=== PATIENT | female | born 1945 | race Two or more races ===

== ENCOUNTER 2022-11-13 07:11 | Day surgery (SDC) | payer OTHER, MEDICAID ==
[2022-11-13] VITALS (8 sets, daily range): BP systolic 134–155; BP diastolic 52–75
[~2022-11-13] VITALS: Ht 160 cm; Wt 82.6 kg
[~2022-11-13 07:11] MED LIST: ALBU108A5; APIX5TAB PO; ASPI-543 PO; FLUT0.05 NAS; GLIP5TAB12 PO; HYDR-4798 PO; LORA-35 PO; METF-370 PO; METO-158 PO; MULT-927 PO; NITR0.4S29 SL; PANT40T PO; RANO1000 PO; SIMV-8 PO
[2022-11-13] MEDS ORDERED: VERAPAMIL 2.5MG/ML INJ 2ML VIAL IV ONE (09:02)
[2022-11-13] MEDS ORDERED: HEPARIN SODIUM (PORCINE) 5000 UNITS/ML 1ML VIAL ONE (09:02)
[2022-11-13] MEDS ORDERED: fentaNYL CITRATE 100 MCG/2 ML VL ONE (09:02)
[2022-11-13] MEDS ORDERED: MIDAZOLAM HCL 2MG/2ML 2ml VIAL (1mg/ml) ONE (09:02)
[2022-11-13] MEDS ORDERED: ANGIOMAX 250 MG VIAL IV ONE (09:02)
[2022-11-13] MEDS ORDERED: SODIUM CHL 0.9% 0 ML ONE (09:02)
[2022-11-13] MEDS ORDERED: IODIXANOL 320MG/ML 100ML BTL IV ONE (09:11)
== END 2022-11-13 12:15 | disposition home or self-care (01) ==
LOC: CATH 07:11
PROVIDERS: ATTEND Internal Medicine Cardiovascular Disease
DX: I25.10 Atherosclerotic heart disease of native coronary artery without angina pectoris (principal); R06.02 Shortness of breath; I10 Essential (primary) hypertension; E78.5 Hyperlipidemia, unspecified; E11.9 Type 2 diabetes mellitus without complications; Z85.3 Personal history of malignant neoplasm of breast; Z90.49 Acquired absence of other specified parts of digestive tract; Z86.718 Personal history of other venous thrombosis and embolism; R94.39 Abnormal result of other cardiovascular function study; Z98.890 Other specified postprocedural states; Z79.899 Other long term (current) drug therapy; Z79.84 Long term (current) use of oral hypoglycemic drugs
CPT/HCPCS: 76937; 93458; C1725; C1769; C1894; J1644; J2250; J3010; Q9967; 99152

== ENCOUNTER 2023-04-26 12:55 | Inpatient (IN) | payer OTHER, MEDICAID ==
[~2023-04-26] VITALS: Ht 160 cm; Wt 79.9 kg
[~2023-04-26 12:55] MED LIST changes: -SIMV-8 PO; +SIMV20TA20 PO
[2023-04-26 13:40] LABS: Basophils # (auto) 0 10 ^3/uL (0-0.2); Basophils % (auto) 0.5 % (0.0-2.0); Eosinophils # (auto) 0.1 10 ^3/uL (0-0.8); Eosinophils % (auto) 1.3 % (0.0-7.0); Hematocrit 32.3 % (36.0-46.0); Hemoglobin 10.6 g/dL (12.2-16.2); Lymphocytes # (auto) 1.5 10 ^3/uL (0.4-5.4); Lymphocytes % (auto) 18.1 % (10.0-50.0); Mean Corpuscular Hgb Conc. 32.7 g/dL (32.0-36.0); Mean Corpuscular Volume 85.6 fL (80.0-100.0); Monocytes # (auto) 0.6 10 ^3/uL (0-1.3); Monocytes % (auto) 7.5 % (0.0-12.0); Neutrophils # (auto) 5.9 10 ^3/uL (1.6-8.6); Neutrophils % (auto) 72.6 % (37.0-80.0); Red Blood Cells 3.78 10^6/uL (4.0-5.20); Red Cell Distribution Width 16.2 % (11.8-14.3); White Blood Cell 8.2 10^3/uL (4.4-10.8)
[2023-04-26 13:49] VITALS: PULSE 80; RESP 18; O2SAT 96
[2023-04-26 14:03] LABS: Alanine Aminotransferase 14 U/L (7-40); Albumin 3.8 g/dL (3.2-4.8); Alkaline Phosphatase 46 U/L (46-116); Anion Gap 9 (5-15); Aspartate Aminotransferase 20 U/L (13-40); Blood Urea Nitrogen 16 mg/dL (9-23); Calcium 8.7 mg/dL (8.5-10.1); Carbon Dioxide 24 mmol/L (20-30); Chloride 107 mmol/L (98-107); Glucose 130 mg/dL (74-106); Potassium 4.5 mmol/L (3.5-5.1); Sodium 140 mmol/L (136-145)
[2023-04-26 14:04] LABS: Bilirubin, Total 0.3 mg/dL (0.2-1.0); Total Protein 5.8 g/dL (5.7-8.2)
[2023-04-26] MEDS ORDERED: NITROGLYCERIN 0.4 MG SL TAB SL PRN (16:00)
[2023-04-26] MEDS ORDERED: MORPHINE SULFATE INJ 2 MG/ml SYRG IV PRN (16:00)
[2023-04-26] MEDS ORDERED: ACETAMINOPHEN 325 MG TAB PO PRN (16:00)
[2023-04-26] MEDS ORDERED: HYDROcodone-ACET 5/325MG TAB PO PRN (17:30)
[2023-04-26 19:15] LABS: Urine Bacteria FEW /hpf (None Seen); Urine Blood Negative /uL (Negative); Urine Clarity Clear (Clear); Urine Color Yellow (Yellow); Urine Protein, UAD TRACE (Negative); Urine Specific Gravity 1.018 (1.001-1.035); Urine Urobilinogen Normal (Negative); Urine WBC 88 /hpf (0 - 5); Urine pH 5.5 (5.0-8.0)
[2023-04-26 19:30] VITALS: PULSE 82; RESP 13; O2SAT 94
[2023-04-26] MEDS ORDERED: cefTRIAXone 1GM/50ML D5W 50 ML IV ONE (21:00)
[2023-04-26] MEDS: APIXABAN 5 MG TAB PO SCH (22:02)
[2023-04-26] MEDS: ATORVASTATIN 20 MG TAB PO SCH (22:02)
[2023-04-26] MEDS: RANOLAZINE ER 500 MG TAB PO SCH (22:03)
[2023-04-26 23:59] VITALS: BP 154/70; PULSE 84; RESP 14; TEMP 98.3; O2SAT 98
[2023-04-27] VITALS (8 sets, daily range): BP systolic 121–160; BP diastolic 50–70; PULSE 76–88; RESP 14–19; TEMP 97.7–98.4; O2SAT 94–99
[2023-04-27 07:06] LABS: Basophils # (auto) 0 10 ^3/uL (0-0.2); Basophils % (auto) 0.3 % (0.0-2.0); Eosinophils # (auto) 0.2 10 ^3/uL (0-0.8); Eosinophils % (auto) 2.4 % (0.0-7.0); Hematocrit 33.6 % (36.0-46.0); Hemoglobin 10.9 g/dL (12.2-16.2); Lymphocytes # (auto) 1.8 10 ^3/uL (0.4-5.4); Lymphocytes % (auto) 23.4 % (10.0-50.0); Mean Corpuscular Hgb Conc. 32.5 g/dL (32.0-36.0); Mean Corpuscular Volume 86.1 fL (80.0-100.0); Monocytes # (auto) 0.7 10 ^3/uL (0-1.3); Monocytes % (auto) 9.3 % (0.0-12.0); Neutrophils % (auto) 64.6 % (37.0-80.0); Nucleated Red Blood Cells % 0.1 %; Red Cell Distribution Width 16.6 % (11.8-14.3); White Blood Cell 7.7 10^3/uL (4.4-10.8)
[2023-04-27 07:17] LABS: INR 1.19 (0.9-1.15); Prothrombin Time 12.4 sec (9.3-11.8)
[2023-04-27 08:50] LABS: Alanine Aminotransferase 12 U/L (7-40); Albumin 3.9 g/dL (3.2-4.8); Alkaline Phosphatase 45 U/L (46-116); Anion Gap 8 (5-15); Aspartate Aminotransferase 16 U/L (13-40); BUN/Creatinine Ratio 13.3 (10.0-20.0); Blood Urea Nitrogen 12 mg/dL (9-23); Calcium 8.8 mg/dL (8.5-10.1); Carbon Dioxide 25 mmol/L (20-30); Chloride 107 mmol/L (98-107); Cholesterol 92 mg/dL (< 200); Glucose 116 mg/dL (74-106); HDL Cholesterol 36 mg/dL (40-59); LDL Cholesterol 34 mg/dL (< 100); Potassium 3.9 mmol/L (3.5-5.1); Sodium 140 mmol/L (136-145); Triglycerides 104 mg/dL (< 150)
[2023-04-27 08:51] LABS: Bilirubin, Total 0.2 mg/dL (0.2-1.0); Total Protein 6.2 g/dL (5.7-8.2)
[2023-04-27 09:04] LABS: Ferritin 8.5 ng/mL (10-291)
[2023-04-27 09:28] LABS: Magnesium 1.2 mg/dL (1.6-2.6)
[2023-04-27] MEDS: ASPirin-EC 81 mg tab PO SCH (09:29)
[2023-04-27] MEDS: PANTOPRAZOLE 40 MG TAB PO SCH (09:29)
[2023-04-27] MEDS: APIXABAN 5 MG TAB PO SCH ×2 (09:30→21:36)
[2023-04-27] MEDS: METOPROLOL TARTRATE 50 MG TAB PO SCH (09:30)
[2023-04-27] MEDS: RANOLAZINE ER 500 MG TAB PO SCH ×2 (09:31→21:36)
[2023-04-27] MEDS ORDERED: PANTOPRAZOLE 40 MG TAB PO SCH (10:00)
[2023-04-27] MEDS ORDERED: hydrALAZINE HCL 20 MG/ML VL IV PRN (14:00)
[2023-04-27] MEDS ORDERED: ISOSORBIDE MONONITRATE ER 60 MG TAB PO ONE (17:00)
[2023-04-27] MEDS: ATORVASTATIN 20 MG TAB PO SCH (21:36)
[2023-04-28 05:00] VITALS: BP 135/58; PULSE 81; RESP 14; TEMP 98.1; O2SAT 94
[2023-04-28 08:00] VITALS: PULSE 108; PULSE 98; RESP 16; O2SAT 97
[2023-04-28 08:38] VITALS: BP 143/70; PULSE 98; RESP 16; TEMP 97.5; O2SAT 97
[2023-04-28 08:54] LABS: Basophils # (auto) 0 10 ^3/uL (0-0.2); Basophils % (auto) 0.4 % (0.0-2.0); Eosinophils # (auto) 0.2 10 ^3/uL (0-0.8); Eosinophils % (auto) 2.1 % (0.0-7.0); Hematocrit 37.8 % (36.0-46.0); Hemoglobin 12.1 g/dL (12.2-16.2); Lymphocytes # (auto) 1.9 10 ^3/uL (0.4-5.4); Lymphocytes % (auto) 23.3 % (10.0-50.0); Mean Corpuscular Hemoglobin 27.9 pg (28.0-32.0); Mean Corpuscular Hgb Conc. 32.1 g/dL (32.0-36.0); Mean Corpuscular Volume 86.9 fL (80.0-100.0); Monocytes # (auto) 0.7 10 ^3/uL (0-1.3); Monocytes % (auto) 8.4 % (0.0-12.0); Neutrophils # (auto) 5.3 10 ^3/uL (1.6-8.6); Neutrophils % (auto) 65.8 % (37.0-80.0); Red Blood Cells 4.35 10^6/uL (4.0-5.20); Red Cell Distribution Width 16.6 % (11.8-14.3); White Blood Cell 8.1 10^3/uL (4.4-10.8)
[2023-04-28 09:13] LABS: Alanine Aminotransferase 11 U/L (7-40); Albumin 4.3 g/dL (3.2-4.8); Alkaline Phosphatase 58 U/L (46-116); Anion Gap 6 (5-15); Aspartate Aminotransferase 13 U/L (13-40); BUN/Creatinine Ratio 10.5 (10.0-20.0); Blood Urea Nitrogen 11 mg/dL (9-23); Calcium 9.4 mg/dL (8.7-10.4); Carbon Dioxide 26 mmol/L (20-30); Chloride 106 mmol/L (98-107); Glucose 230 mg/dL (74-106); Magnesium 1.4 mg/dL (1.6-2.6); Sodium 138 mmol/L (136-145)
[2023-04-28 09:14] LABS: Bilirubin, Total 0.3 mg/dL (0.2-1.0); Total Protein 6.9 g/dL (5.7-8.2)
[2023-04-28] MEDS: ASPirin-EC 81 mg tab PO SCH (09:59)
[2023-04-28] MEDS: METOPROLOL TARTRATE 50 MG TAB PO SCH (09:59)
[2023-04-28] MEDS: MAGNESIUM SULFATE 1GM/100ML 100 ML IV SCH ×2 (09:59→11:13)
[2023-04-28] MEDS: PANTOPRAZOLE 40 MG TAB PO SCH (10:00)
[2023-04-28] MEDS: RANOLAZINE ER 500 MG TAB PO SCH (10:00)
[2023-04-28] MEDS ORDERED: ISOSORBIDE MONONITRATE ER 60 MG TAB PO SCH (10:00)
[2023-04-28] MEDS: APIXABAN 5 MG TAB PO SCH (10:00)
[2023-04-28] MEDS ORDERED: FERROUS SULFATE 325mg EC TAB PO SCH (10:15)
[2023-04-28] MEDS ORDERED: ATOR20TA50 PO (10:45)
[2023-04-28] MEDS ORDERED: FER325T PO (10:45)
[2023-04-28 12:44] VITALS: BP 137/69; PULSE 76; RESP 17; TEMP 98; O2SAT 100
[2023-04-28 13:23] VITALS: BP 137/67; PULSE 76; RESP 17; TEMP 98; O2SAT 96
[2023-04-29 10:31] LABS: Folate (Folic Acid) 21.84 ng/mL (>5.38)
== END 2023-04-28 14:45 | disposition home or self-care (01) | DRG 303 ==
LOC: ER 12:55 → EDBD 12:55 → TELE 16:02 → TELE-WESTW 20:59
PROVIDERS: ADMIT Internal Medicine; ATTEND Internal Medicine
DX: I25.110 Atherosclerotic heart disease of native coronary artery with unstable angina pectoris (principal); N39.0 Urinary tract infection, site not specified; I50.32 Chronic diastolic (congestive) heart failure; I11.0 Hypertensive heart disease with heart failure; D64.9 Anemia, unspecified; E11.9 Type 2 diabetes mellitus without complications; E66.9 Obesity, unspecified; E83.42 Hypomagnesemia; E78.5 Hyperlipidemia, unspecified; K21.9 Gastro-esophageal reflux disease without esophagitis; Z85.3 Personal history of malignant neoplasm of breast; Z86.718 Personal history of other venous thrombosis and embolism; Z88.1 Allergy status to other antibiotic agents; Z88.8 Allergy status to other drugs, medicaments and biological substances; Z68.31 Body mass index [BMI] 31.0-31.9, adult
CPT/HCPCS: 36415; 71045; 80053; 80061; 81001; 82270; 82607; 82728; 82746; 82962; 83036; 83735; 83880; 84443; 84484; 85025; 85610; 87086; 93005; 93306; 96365; 96375; G0378; J0696

== ENCOUNTER 2023-06-22 18:17 | Inpatient (IN) | payer OTHER, MEDICAID ==
[~2023-06-22] VITALS: Ht 160 cm; Wt 79.2 kg
[~2023-06-22 18:17] MED LIST changes: +ATOR20TA50 PO; +FER325T PO; -SIMV20TA20 PO
[2023-06-22] MEDS ORDERED: NITROGLYCERIN 0.2MG/HR TOPICAL PATCH TD ONE (20:00)
[2023-06-22] MEDS ORDERED: ASPirin 81 mg TAB PO ONE (20:00)
[2023-06-22] MEDS ORDERED: SODIUM CHLORIDE 0.9% 1,000 ML IV ONE (20:00)
[2023-06-22] MEDS ORDERED: ACETAMINOPHEN 325 MG TAB PO ONE (20:00)
[2023-06-22] MEDS ORDERED: MORPHINE SULFATE 4 MG/ML SYR/VIAL IV ONE (20:00)
[2023-06-22] MEDS ORDERED: ONDANSETRON HCL 4 MG/2 ML VIAL IV ONE (20:00)
[2023-06-22 20:36] LABS: Basophils # (auto) 0 10 ^3/uL (0-0.2); Basophils % (auto) 0.5 % (0.0-2.0); Eosinophils # (auto) 0 10 ^3/uL (0-0.8); Eosinophils % (auto) 0.6 % (0.0-7.0); Hemoglobin 10.9 g/dL (12.2-16.2); Lymphocytes % (auto) 26.2 % (10.0-50.0); Mean Corpuscular Hemoglobin 27.6 pg (28.0-32.0); Mean Corpuscular Hgb Conc. 31.9 g/dL (32.0-36.0); Mean Corpuscular Volume 86.5 fL (80.0-100.0); Monocytes # (auto) 0.6 10 ^3/uL (0-1.3); Monocytes % (auto) 8.1 % (0.0-12.0); Neutrophils # (auto) 4.9 10 ^3/uL (1.6-8.6); Neutrophils % (auto) 64.6 % (37.0-80.0); Red Blood Cells 3.93 10^6/uL (4.0-5.20); Red Cell Distribution Width 15.7 % (11.8-14.3); White Blood Cell 7.6 10^3/uL (4.4-10.8)
[2023-06-22 20:56] LABS: INR 1.25 (0.9-1.15); Prothrombin Time 12.9 sec (9.3-11.8)
[2023-06-22 20:57] LABS: Albumin 3.9 g/dL (3.2-4.8); Alkaline Phosphatase 61 U/L (46-116); Anion Gap 6 (5-15); Aspartate Aminotransferase 13 U/L (13-40); BUN/Creatinine Ratio 14.8 (10.0-20.0); Bilirubin, Total 0.4 mg/dL (0.2-1.0); Blood Urea Nitrogen 13 mg/dL (9-23); Calcium 8.8 mg/dL (8.7-10.4); Carbon Dioxide 27 mmol/L (20-30); Chloride 104 mmol/L (98-107); Glucose 100 mg/dL (74-106); Magnesium 1.4 mg/dL (1.6-2.6); Potassium 4.2 mmol/L (3.5-5.1); Sodium 137 mmol/L (136-145); Total Protein 6.2 g/dL (5.7-8.2)
[2023-06-22 21:00] LABS: Alanine Aminotransferase < 9 U/L (7-40)
[2023-06-22 22:30] VITALS: PULSE 91; RESP 21; O2SAT 99
[2023-06-22 22:50] LABS: Urine Bacteria NONE SEEN /hpf (None Seen); Urine Blood Negative /uL (Negative); Urine Clarity Clear (Clear); Urine Color Yellow (Yellow); Urine Protein, UAD Negative (Negative); Urine Specific Gravity 1.009 (1.001-1.035); Urine Urobilinogen Normal (Negative); Urine WBC 1 /hpf (0 - 5); Urine pH 6.5 (5.0-8.0)
[2023-06-23] MEDS ORDERED: MORPHINE SULFATE INJ 2 MG/ml SYRG IV PRN (05:00)
[2023-06-23] MEDS ORDERED: DEXTROSE (50%) 50ML SYRG IV PRN (05:00)
[2023-06-23] MEDS ORDERED: ALBUTEROL MEDNEB 2.5 mg/3ml NEB NEB PRN (05:00)
[2023-06-23] MEDS ORDERED: ONDANSETRON HCL 4 MG/2 ML VIAL IV PRN (05:00)
[2023-06-23] MEDS ORDERED: NITROGLYCERIN 0.4 MG SL TAB SL PRN (05:00)
[2023-06-23] MEDS: ACCU-CHEK COMFORT CURVE STRIP VI SCH ×4 (06:34→23:12)
[2023-06-23] MEDS: InsuLIN REG 1unit/0.01ml Soln (100units/ml) SC SCH ×4 (06:34→23:18)
[2023-06-23] MEDS ORDERED: MAGNESIUM OXIDE 400 MG TAB PO ONE (07:00)
[2023-06-23 07:10] VITALS: RESP 16
[2023-06-23] MEDS ORDERED: ISOSORBIDE MONONITRATE ER 60 MG TAB PO SCH (10:00)
[2023-06-23 10:32] VITALS: BP 138/53; PULSE 82; RESP 16; TEMP 98; O2SAT 94
[2023-06-23 10:47] VITALS: O2SAT 94
[2023-06-23] MEDS: METOPROLOL SUCCINATE XL 50 MG TAB PO SCH (10:59)
[2023-06-23] MEDS: APIXABAN 5 MG TAB PO SCH ×2 (11:41→23:00)
[2023-06-23] MEDS: ASPirin 81 mg TAB PO SCH (11:41)
[2023-06-23] MEDS: RANOLAZINE ER 500 MG TAB PO SCH ×2 (11:42→23:14)
[2023-06-23 19:05] VITALS: O2SAT 97
[2023-06-23] MEDS: ATORVASTATIN 20 MG TAB PO SCH (23:01)
[2023-06-24 06:55] LABS: Basophils # (auto) 0 10 ^3/uL (0-0.2); Basophils % (auto) 0.6 % (0.0-2.0); Eosinophils # (auto) 0.2 10 ^3/uL (0-0.8); Eosinophils % (auto) 2.5 % (0.0-7.0); Hematocrit 34.5 % (36.0-46.0); Lymphocytes # (auto) 2.1 10 ^3/uL (0.4-5.4); Lymphocytes % (auto) 27.4 % (10.0-50.0); Mean Corpuscular Hemoglobin 27.8 pg (28.0-32.0); Mean Corpuscular Hgb Conc. 31.9 g/dL (32.0-36.0); Mean Corpuscular Volume 87.3 fL (80.0-100.0); Monocytes # (auto) 0.8 10 ^3/uL (0-1.3); Monocytes % (auto) 10.4 % (0.0-12.0); Neutrophils # (auto) 4.6 10 ^3/uL (1.6-8.6); Neutrophils % (auto) 59.1 % (37.0-80.0); Red Blood Cells 3.95 10^6/uL (4.0-5.20); Red Cell Distribution Width 15.9 % (11.8-14.3); White Blood Cell 7.8 10^3/uL (4.4-10.8)
[2023-06-24] MEDS: InsuLIN REG 1unit/0.01ml Soln (100units/ml) SC SCH ×4 (07:00→23:28)
[2023-06-24 07:05] LABS: Alanine Aminotransferase 11 U/L (7-40); Albumin 3.7 g/dL (3.2-4.8); Alkaline Phosphatase 55 U/L (46-116); Calcium 8.6 mg/dL (8.7-10.4); Carbon Dioxide 27 mmol/L (20-30); Chloride 106 mmol/L (98-107); Glucose 105 mg/dL (74-106); Potassium 4.2 mmol/L (3.5-5.1)
[2023-06-24 07:06] LABS: Anion Gap 5 (5-15); Aspartate Aminotransferase 25 U/L (13-40); BUN/Creatinine Ratio 10.8 (10.0-20.0); Bilirubin, Total 0.5 mg/dL (0.2-1.0); Blood Urea Nitrogen 9 mg/dL (9-23); Sodium 138 mmol/L (136-145); Total Protein 5.8 g/dL (5.7-8.2)
[2023-06-24] MEDS: ACCU-CHEK COMFORT CURVE STRIP VI SCH ×4 (07:27→23:16)
[2023-06-24 08:00] VITALS: BP 149/63; PULSE 85; RESP 20; TEMP 97.3; O2SAT 98
[2023-06-24 08:28] VITALS: BP 149/63; PULSE 85; RESP 20; TEMP 97.3; O2SAT 98
[2023-06-24] MEDS: ACETAMINOPHEN 325 MG TAB PO PRN (09:16)
[2023-06-24] MEDS: APIXABAN 5 MG TAB PO SCH ×2 (10:12→23:29)
[2023-06-24] MEDS: METOPROLOL SUCCINATE XL 50 MG TAB PO SCH (10:13)
[2023-06-24] MEDS: ISOSORBIDE MONONITRATE ER 60 MG TAB PO SCH (10:13)
[2023-06-24] MEDS: RANOLAZINE ER 500 MG TAB PO SCH ×2 (10:14→23:29)
[2023-06-24] MEDS: ASPirin 81 mg TAB PO SCH (10:14)
[2023-06-24 12:00] VITALS: BP 94/67; PULSE 65; RESP 20; TEMP 97.6; O2SAT 94
[2023-06-24] MEDS ORDERED: LORazepam 0.5 MG TAB PO PRN (12:30)
[2023-06-24] MEDS ORDERED: IPRA0.03 (14:53)
[2023-06-24] MEDS ORDERED: ISOS1TAB28 PO (14:53)
[2023-06-24] MEDS ORDERED: METO25TA93 PO (14:53)
[2023-06-24] MEDS ORDERED: BUSP5TAB51 PO (14:54)
[2023-06-24] MEDS ORDERED: ALPR0.254 PO (14:54)
[2023-06-24] MEDS ORDERED: SEMA4INJ SC (14:56)
[2023-06-24] MEDS ORDERED: MECL1TAB32 PO (14:56)
[2023-06-24 16:00] VITALS: BP 100/58; PULSE 67; RESP 18; TEMP 97.4; O2SAT 97
[2023-06-24 20:00] VITALS: PULSE 78; RESP 18
[2023-06-24 22:00] VITALS: BP 112/51; PULSE 76; RESP 18; TEMP 98.4; O2SAT 96
[2023-06-24] MEDS: ATORVASTATIN 20 MG TAB PO SCH (23:29)
[2023-06-25] VITALS (7 sets, daily range): BP systolic 132–148; BP diastolic 62–69; PULSE 72–77; RESP 16–18; TEMP 36.4; O2SAT 95–98
[2023-06-25] MEDS: ACCU-CHEK COMFORT CURVE STRIP VI SCH ×3 (06:18→17:00)
[2023-06-25] MEDS: InsuLIN REG 1unit/0.01ml Soln (100units/ml) SC SCH ×3 (06:19→17:33)
[2023-06-25] MEDS: ACETAMINOPHEN 325 MG TAB PO PRN (06:21)
[2023-06-25] MEDS: ASPirin 81 mg TAB PO SCH (09:42)
[2023-06-25] MEDS: APIXABAN 5 MG TAB PO SCH (09:42)
[2023-06-25] MEDS: METOPROLOL SUCCINATE XL 50 MG TAB PO SCH (09:42)
[2023-06-25] MEDS: RANOLAZINE ER 500 MG TAB PO SCH (09:42)
[2023-06-25] MEDS: ISOSORBIDE MONONITRATE ER 60 MG TAB PO SCH (09:43)
== END 2023-06-25 17:55 | disposition home or self-care (01) | DRG 303 ==
LOC: EDBD 18:17 → ER 18:17 → TELE 06-23 05:06 → TELE-EAST 06-24 08:28
PROVIDERS: ADMIT Nurse Practitioner; ATTEND Family Medicine
DX: I25.110 Atherosclerotic heart disease of native coronary artery with unstable angina pectoris (principal); I24.9 Acute ischemic heart disease, unspecified; I11.0 Hypertensive heart disease with heart failure; E11.9 Type 2 diabetes mellitus without complications; I50.9 Heart failure, unspecified; K21.9 Gastro-esophageal reflux disease without esophagitis; E78.00 Pure hypercholesterolemia, unspecified; F41.9 Anxiety disorder, unspecified; Z85.3 Personal history of malignant neoplasm of breast; Z86.718 Personal history of other venous thrombosis and embolism; Z79.01 Long term (current) use of anticoagulants; Z79.84 Long term (current) use of oral hypoglycemic drugs; Z79.899 Other long term (current) drug therapy; Z88.8 Allergy status to other drugs, medicaments and biological substances; Z82.0 Family history of epilepsy and other diseases of the nervous system; Z82.49 Family history of ischemic heart disease and other diseases of the circulatory system; Z87.891 Personal history of nicotine dependence
CPT/HCPCS: 36415; 71045; 80053; 81001; 82962; 83735; 83880; 84443; 84484; 85025; 85610; 85730; 93005; G0378; J1815; J2405

== ENCOUNTER 2024-01-31 10:35 | Inpatient (IN) | payer OTHER, MEDICAID ==
[~2024-01-31] VITALS: Ht 165.1 cm; Wt 75.0 kg
[~2024-01-31 10:35] MED LIST changes: +ALPR0.254 PO; +BUSP5TAB51 PO; -GLIP5TAB12 PO; +GLIP5TAB21 PO; +IPRA0.03; +ISOS1TAB28 PO; +MECL-90 PO; -METO-158 PO; +METO25TA93 PO; +SEMA4INJ SC
[2024-01-31 11:04] VITALS: PULSE 68; RESP 12; O2SAT 92
[2024-01-31 11:34] LABS: Basophils # (auto) 0 10 ^3/uL (0-0.2); Basophils % (auto) 0.6 % (0.0-2.0); Eosinophils # (auto) 0.1 10 ^3/uL (0-0.8); Eosinophils % (auto) 1.8 % (0.0-7.0); Hematocrit 30.7 % (36.0-46.0); Hemoglobin 9.8 g/dL (12.2-16.2); Lymphocytes # (auto) 1.3 10 ^3/uL (0.4-5.4); Lymphocytes % (auto) 18.7 % (10.0-50.0); Mean Corpuscular Hemoglobin 28.6 pg (28.0-32.0); Mean Corpuscular Volume 89.4 fL (80.0-100.0); Monocytes # (auto) 0.6 10 ^3/uL (0-1.3); Monocytes % (auto) 8.6 % (0.0-12.0); Neutrophils # (auto) 4.9 10 ^3/uL (1.6-8.6); Neutrophils % (auto) 70.3 % (37.0-80.0); Red Blood Cells 3.44 10^6/uL (4.0-5.20); Red Cell Distribution Width 16.8 % (11.8-14.3); White Blood Cell 6.9 10^3/uL (4.4-10.8)
[2024-01-31] MEDS: SODIUM CHLORIDE 0.9% 1,000 ML IV ONE (11:54)
[2024-01-31 12:03] LABS: Chloride 103 mmol/L (98-107); Potassium 4.3 mmol/L (3.5-5.1); Sodium 138 mmol/L (136-145)
[2024-01-31 12:04] LABS: Anion Gap 5 (5-15); Calcium 9.1 mg/dL (8.7-10.4); Carbon Dioxide 30 mmol/L (20-30)
[2024-01-31 12:09] LABS: BUN/Creatinine Ratio 13.4 (10.0-20.0); Blood Urea Nitrogen 11 mg/dL (9-23); Glucose 179 mg/dL (74-106)
[2024-01-31] MEDS ORDERED: DEXTROSE (50%) 50ML SYRG IV PRN (13:30)
[2024-01-31 15:04] LABS: Magnesium 1.2 mg/dL (1.6-2.6)
[2024-01-31 15:05] LABS: Phosphorus 3.8 mg/dL (2.4-5.1)
[2024-01-31 16:13] VITALS: BP 152/58; PULSE 80; RESP 18; TEMP 97.3; O2SAT 97
[2024-01-31] MEDS ORDERED: FURO20TA3 PO (16:46)
[2024-01-31 17:00] VITALS: BP 147/48; PULSE 78; RESP 18; TEMP 97.3; O2SAT 95
[2024-01-31] MEDS: InsuLIN REG 1unit/0.01ml Soln (100units/ml) SC SCH (17:45)
[2024-01-31] MEDS: ACCU-CHEK COMFORT CURVE STRIP VI SCH (17:46)
[2024-01-31 20:00] VITALS: PULSE 87; RESP 18; O2SAT 95
[2024-01-31 21:00] VITALS: BP 123/47; PULSE 88; RESP 18; TEMP 98.1; O2SAT 98
[2024-01-31] MEDS: RANOLAZINE ER 500 MG TAB PO SCH (21:37)
[2024-01-31] MEDS: busPIRone HCL 10 MG TAB PO SCH (21:37)
[2024-01-31] MEDS: ATORVASTATIN 20 MG TAB PO SCH (21:37)
[2024-01-31] MEDS: APIXABAN 5 MG TAB PO SCH (21:37)
[2024-01-31] MEDS: HYDROcodone-ACET 10/325MG TAB PO PRN (23:12)
[2024-01-31] MEDS: CYANOCOBALAMIN (B-12) 1000 MCG/1 ML VIAL IM ONE (23:14)
[2024-02-01] VITALS (12 sets, daily range): BP systolic 128–157; BP diastolic 57–66; PULSE 69–87; RESP 17–18; TEMP 97–98.1; O2SAT 92–100
[2024-02-01] MEDS: MULTIPLE VITAMINS W/ MINERALS TAB PO SCH (08:40)
[2024-02-01] MEDS: ISOSORBIDE MONONITRATE 20 MG TAB PO SCH (08:41)
[2024-02-01] MEDS: FERROUS SULFATE 325mg EC TAB PO SCH (08:42)
[2024-02-01] MEDS: CYANOCOBALAMIN 500 MCG TAB PO SCH (08:42)
[2024-02-01] MEDS: ASPirin-EC 81 mg tab PO SCH (08:42)
[2024-02-01] MEDS: METOPROLOL SUCCINATE XL 50 MG TAB PO SCH (08:42)
[2024-02-01] MEDS: PANTOPRAZOLE 20 MG TABLET PO SCH (08:43)
[2024-02-01] MEDS: FUROSEMIDE 20 MG TAB PO SCH (08:43)
[2024-02-01] MEDS: ONDANSETRON HCL 4 MG/2 ML VIAL IV PRN (11:15)
[2024-02-01] MEDS: MAGNESIUM SULFATE 1GM/100ML 100 ML IV SCH (12:58)
[2024-02-01] MEDS: ALPRAZolam 0.25 MG TAB PO PRN (14:05)
[2024-02-01] MEDS: ALBUTEROL SULF 2.5 MG/0.5ML(0.5%) NEB SOLN NEB SCH (15:07)
[2024-02-01] MEDS: DOCUSATE SOD 100 MG CAP PO SCH (21:30)
[2024-02-02] VITALS (11 sets, daily range): BP systolic 114–119; BP diastolic 48–56; PULSE 67–82; RESP 15–18; TEMP 97.5–98.4; O2SAT 93–100
[2024-02-02] MEDS: LORazepam 2MG/ML-1ML VIAL IV ONE (17:18)
[2024-02-03] VITALS (15 sets, daily range): BP systolic 95–132; BP diastolic 49–73; PULSE 55–97; RESP 16–20; TEMP 97.8–98.4; O2SAT 91–100
[2024-02-03 13:00] LABS: Folate (Folic Acid) > 24.00 ng/mL (>5.38)
[2024-02-03 13:02] LABS: Free T4 (Free Thyroxine) 1.16 ng/dL (0.89-1.76)
[2024-02-03] MEDS: LACTULOSE 20Gm/30ML SOLN PO ONE (14:35)
[2024-02-03] MEDS ORDERED: FLUT1SPR5 (16:46)
[2024-02-03] MEDS ORDERED: RANO10003 PO (16:46)
[2024-02-03] MEDS ORDERED: ISO60SRT PO (16:46)
[2024-02-03] MEDS ORDERED: METF-489 PO (16:46)
[2024-02-03] MEDS ORDERED: POTA-36 PO (16:50)
[2024-02-03] MEDS ORDERED: GABA-1250 PO (16:50)
[2024-02-04] VITALS (10 sets, daily range): BP systolic 111–133; BP diastolic 46–58; PULSE 69–87; RESP 16–18; TEMP 98–98.7; O2SAT 96–100
[2024-02-04] MEDS ORDERED: ALPR1TAB2 PO (10:15)
[2024-02-04] MEDS: HYDROcodone-ACET 10/325MG TAB PO PRN (13:37)
== END 2024-02-04 17:53 | disposition home health service (06) | DRG 640 ==
LOC: EDUNIT# 10:35 → EDBD 10:35 → ER 10:35 → TELE 13:31 → TELE-EAST 15:00
PROVIDERS: ADMIT Nurse Practitioner Family; ATTEND Family Medicine
DX: E83.42 Hypomagnesemia (principal); G93.41 Metabolic encephalopathy; I50.33 Acute on chronic diastolic (congestive) heart failure; G45.9 Transient cerebral ischemic attack, unspecified; I25.110 Atherosclerotic heart disease of native coronary artery with unstable angina pectoris; D63.8 Anemia in other chronic diseases classified elsewhere; E53.8 Deficiency of other specified B group vitamins; E66.01 Morbid (severe) obesity due to excess calories; F41.9 Anxiety disorder, unspecified; E78.00 Pure hypercholesterolemia, unspecified; I11.0 Hypertensive heart disease with heart failure; M54.2 Cervicalgia; K21.9 Gastro-esophageal reflux disease without esophagitis; E11.9 Type 2 diabetes mellitus without complications; Z88.8 Allergy status to other drugs, medicaments and biological substances; Z79.899 Other long term (current) drug therapy; Z79.82 Long term (current) use of aspirin; Z90.710 Acquired absence of both cervix and uterus; Z82.0 Family history of epilepsy and other diseases of the nervous system; Z82.49 Family history of ischemic heart disease and other diseases of the circulatory system; Z79.01 Long term (current) use of anticoagulants; Z79.84 Long term (current) use of oral hypoglycemic drugs; Z87.891 Personal history of nicotine dependence; Z85.3 Personal history of malignant neoplasm of breast; Z86.718 Personal history of other venous thrombosis and embolism; Z88.1 Allergy status to other antibiotic agents; Z90.10 Acquired absence of unspecified breast and nipple; Z68.27 Body mass index [BMI] 27.0-27.9, adult; Z95.828 Presence of other vascular implants and grafts
CPT/HCPCS: 36415; 70450; 70551; 71045; 72040; 80048; 82607; 82746; 82962; 83735; 83880; 84100; 84439; 84443; 84484; 85025; 85379; 93005; 93306; 93886; 94640; 95819; 97110; 97116; 97163; 97530; G0378; J1815; J2405